=== PATIENT | female | born 1975 | race Caucasian/White ===

== ENCOUNTER → 2022-05-26 | Outpatient (CLI) | payer OTHER | LOC: M SOG 15:22 | PROVIDERS: ATTEND Orthopaedic Surgery Hand Surgery | DX: M79.642 Pain in left hand (principal); M79.641 Pain in right hand ==

== ENCOUNTER → 2022-08-28 | Outpatient (CLI) | payer OTHER ==
[~2022-08-28] MED LIST: ARMO200T3 PO; BUPR15TA PO; CVS1CAP2 PO; DESV50TA PO; DICY20TA20 PO; EXCETAB32 PO; FEXO-117 PO; METH-1164 PO; NALT50TA4 PO; OMEP40CA4 PO; ONDA-84 PO; RIZA10TA58 PO; SUCR1TA PO; SUPETAB44 PO; VENL37.598 PO; VENL75CA47 PO; VITATAB26 PO
== END ==
LOC: M LABSMTC 10:23
PROVIDERS: ATTEND Anesthesiology
DX: Z01.818 Encounter for other preprocedural examination (principal); Z11.52 Encounter for screening for COVID-19

== ENCOUNTER 2022-08-31 06:03 | Day surgery (SDC) | payer OTHER ==
[~2022-08-31] VITALS: Ht 160 cm; Wt 85.7 kg
[2022-08-31] MEDS ORDERED: LR 1,000 ML IV SCH ×2 (06:25→08:10)
[2022-08-31] MEDS ORDERED: propofoL 200 MG/20 ML VIAL As Ordered ONE (07:12)
[2022-08-31] MEDS ORDERED: MIDAZOLAM INJ 2MG/2ML VIAL (J2250 PER 1MG) As Ordered ONE (07:12)
[2022-08-31] MEDS ORDERED: LIDOCAINE 2% 100MG/5ML SDV (FOR ANES.) As Ordered ONE (07:12)
[2022-08-31] MEDS ORDERED: fentaNYL 100 MCG/2 ML INJECTION As Ordered ONE (07:12)
[2022-08-31] MEDS ORDERED: BUPIVACAINE HCL 0.25% 30ML VIAL As Ordered ONE (07:21)
[2022-08-31] MEDS ORDERED: ONDANSETRON 4MG 2ML VIAL As Ordered ONE (07:38)
[2022-08-31] MEDS ORDERED: ACETAMINOPHEN 1000MG 100ML IV BAG As Ordered ONE (07:44)
[2022-08-31] MEDS ORDERED: fentaNYL 100 MCG/2 ML INJECTION IV PRN (08:10)
[2022-08-31] MEDS ORDERED: oxyCODONE 5MG TAB PO PRN (08:10)
[2022-08-31] MEDS ORDERED: HYDROMORPHONE HCL 0.5 MG/ 0.5 ML SYRINGE (J1170 PER 1) IV PRN (08:10)
[2022-08-31] MEDS ORDERED: ONDANSETRON 4MG 2ML VIAL IV PRN (08:10)
[2022-08-31 09:24] VITALS: BP 118/71
== END 2022-08-31 09:26 | disposition home or self-care (01) ==
LOC: M SDC 06:03
PROVIDERS: ATTEND Orthopaedic Surgery Hand Surgery
DX: G56.01 Carpal tunnel syndrome, right upper limb (principal); M65.311 Trigger thumb, right thumb; M17.0 Bilateral primary osteoarthritis of knee; F32.A Depression, unspecified; G43.909 Migraine, unspecified, not intractable, without status migrainosus; F60.3 Borderline personality disorder; Z79.899 Other long term (current) drug therapy
CPT/HCPCS: 29848; 81025; J0131; J1100; J2250; J2405; J3010

== ENCOUNTER 2023-02-13 06:06 | Day surgery (SDC) | payer OTHER ==
[~2023-02-13] VITALS: Ht 160 cm; Wt 86.1 kg
[2023-02-13] MEDS ORDERED: LR 1,000 ML IV SCH ×2 (06:35→08:15)
[2023-02-13] MEDS ORDERED: MIDAZOLAM INJ 2MG/2ML VIAL As Ordered ONE (07:08)
[2023-02-13] MEDS ORDERED: fentaNYL 250 MCG/5 ML INJECTION As Ordered ONE (07:08)
[2023-02-13] MEDS ORDERED: ONDANSETRON 4MG 2ML VIAL As Ordered ONE (07:09)
[2023-02-13] MEDS ORDERED: propofoL 200 MG/20 ML VIAL As Ordered ONE (07:09)
[2023-02-13] MEDS ORDERED: LIDOCAINE 2% 100MG/5ML SDV (FOR ANES.) As Ordered ONE (07:09)
[2023-02-13] MEDS ORDERED: KETOROLAC 60MG 2ML VIAL As Ordered ONE (07:09)
[2023-02-13] MEDS ORDERED: ACETAMINOPHEN 1000MG 100ML IV BAG As Ordered ONE (07:12)
[2023-02-13] MEDS ORDERED: BACITRACIN OINTMENT 30GM TUBE As Ordered ONE (07:15)
[2023-02-13] MEDS ORDERED: ePHEDrine SULFATE 25 MG/5 ML(5MG/ML) SYRINGE As Ordered ONE (08:08)
[2023-02-13] MEDS ORDERED: oxyCODONE 5MG TAB PO PRN (08:15)
[2023-02-13] MEDS ORDERED: HYDROMORPHONE HCL 0.5 MG/ 0.5 ML SYRINGE IV PRN (08:15)
[2023-02-13] MEDS ORDERED: fentaNYL 100 MCG/2 ML INJECTION IV PRN (08:15)
[2023-02-13] MEDS ORDERED: ONDANSETRON 4MG 2ML VIAL IV PRN (08:15)
[2023-02-13 09:10] VITALS: TEMP 97.3
[2023-02-13 09:50] VITALS: BP 133/84; O2SAT 95
== END 2023-02-13 10:00 | disposition home or self-care (01) ==
LOC: M SDC 06:06
PROVIDERS: ATTEND Orthopaedic Surgery Hand Surgery
DX: G56.02 Carpal tunnel syndrome, left upper limb (principal); K21.9 Gastro-esophageal reflux disease without esophagitis; G43.909 Migraine, unspecified, not intractable, without status migrainosus; F60.3 Borderline personality disorder; F43.10 Post-traumatic stress disorder, unspecified; Z97.5 Presence of (intrauterine) contraceptive device; Z79.899 Other long term (current) drug therapy; Z87.39 Personal history of other diseases of the musculoskeletal system and connective tissue; Z98.84 Bariatric surgery status
CPT/HCPCS: 29848; J0131; J1100; J2250; J2405; J3010; S0020